=== PATIENT | female | born 1970 | race Caucasian/White ===

== ENCOUNTER 2025-08-10 07:07 | Observation (INO) | payer MEDICARE ==
[2025-08-10] MEDS ORDERED: solu-CORTEF 100MG IJ ONE (07:08)
[2025-08-10 07:51] LABS: Hematocrit 36.2 % (34.1-44.9); Hemoglobin 11.2 g/dL (11.2-15.7); Mean Corpuscular Hemoglobin 26.2 pg (25.6-32.2); Mean Corpuscular Hgb Concent. 30.9 g/dL (32.2-35.5); Platelet Count 455 x10^3/uL (182-369); Red Blood Count 4.27 x10^6/uL (3.93-5.22); White Blood Count 13.2 x10^3/uL (3.98-10.04)
[2025-08-10 07:52] LABS: Glucose, Urine Negative (Negative); Protein,Urine Dip Trace (Negative); RBC 0-2 /HPF (0-5); WBC 0-2 /HPF (0-5)
[2025-08-10 08:04] LABS: Calcium 9.5 mg/dL (8.4-10.2); Carbon Dioxide 24.0 mmol/L (22-30); Creatinine 1 0.85 mg/dL (0.52-1.04); EST GLOMERULAR FILTRATION RATE 80.4 ML/MIN; Glucose 92.0 mg/dL (74-106); Potassium 4.1 mmol/L (3.5-5.1); SGOT/AST 27.0 U/L (14-36); SGPT/ALT 16.0 U/L (0-35); Total Protein 9.2 g/dL (6.3-8.2)
[2025-08-10] MEDS ORDERED: CLINDAMYCIN-D5W 900 MG/50 ML*** 900 MG/50 ML BAG IV ONE (08:28)
[2025-08-10] MEDS ORDERED: Lactated Ringers 1,000 ML IV ONE (08:28)
[2025-08-10] MEDS: Lactated Ringers 1,000 ML IV SCH (08:30)
[2025-08-10] MEDS: CLINDAMYCIN-D5W 900 MG/50 ML*** 900 MG/50 ML BAG IV ONE (08:31)
[2025-08-10 08:36] LABS: Total Cells Counted 100
[2025-08-10 08:48] LABS: Polychromasia 1+
[2025-08-10] MEDS ORDERED: VANCOCIN INJECTION IV ONE ×2 (09:43)
[2025-08-10] MEDS ORDERED: ROCURONIUM BROMIDE IV ONE (10:16)
[2025-08-10] MEDS ORDERED: propofoL IV ONE (10:16)
[2025-08-10] MEDS ORDERED: Zofran 4 MG/2 ML VIAL ONE (10:16)
[2025-08-10] MEDS ORDERED: BRIDION 200MG/2ML IV ONE (12:26)
[2025-08-10] MEDS ORDERED: SUBLIMAZE 100 MCG/2 ML ONE ×2 (12:27→13:03)
--- NOTE | 2025-08-10 12:28 | XRAY ---
Indication: Right foot removal external fixator, possible debridement, and antibiotic spacer. Intraoperative fluoroscopy provided for 2 minute 27 seconds. 11 digital spot images submitted for interpretation demonstrates partial resection distal tibia and talar dome with placement of unknown radiopaque disc/spacer at surgical site. Correlate with intraoperative findings/report.
[2025-08-10] MEDS ORDERED: DILAUDID 0.5 MG/0.5 ML SYRINGE ONE (13:03)
--- NOTE | 2025-08-10 13:42 | PCM.CONS ---
Podiatry HPI - Consult Date of Consultation Date: 08/10/25 Reason for Consult: Charcot osteoarthropathy right ankle and midfoot, osteomyelitis Consulting Provider: CECE GOMEZ DPM - [facility] History of Present Illness: Vandana is a very pleasant 55-year-old female well-known to my service for failure of tibial talocalcaneal arthrodesis with another provider who presented to my service with an infection and failure of hardware approximately 5 weeks ago. Subsequently bone biopsies and bone cultures were obtained in the index procedure with incision and drainage with bone debridement and application of an external fixator demonstrating clean bone biopsies with confounding bone cultures at the level of the talus with scant growth of beta-hemolytic strep. These findings were sensitive to IV and oral antibiotics for which she has been on for the last month and a half. Patient presented for surgical intervention today however presented with mild leukocytosis thrombocytosis and elevated total protein consistent with chronic inflammatory and reactive processes. Once again bone cultures and biopsies were negative and there is no clinical evidence of active infection on exam given the absence of systemic and local signs of infection the discussion was held with the patient in regards to going forward with surgical intervention however workup with urinary analysis did not prompt a urine culture and we do need to identify source control. Discussion was held in regards to removal of external fixator as well as antibiotic spacer and getting repeat bone biopsies and bone cultures. It is out of an abundance of caution that we proceeded with the removal of the external fixator repeat bone biopsies partial colectomy and placement of antibiotic spacer she has since been on antibiotics however does have some serge cations of urinary frequency and dysuria which although urinalysis was negative she will be admitted for further evaluation and workup of resistant urinary tract infection. Given ongoing concern for potential occult infection we will obtain an MRI to better delineate if there is any residual osseous or soft tissue involvement. I would prefer a PICC line be placed to facilitate IV antibiotics if deemed necessary. At this time we have decided to defer definitive fixation and reschedule for next week if all cultures and biopsies have been deemed negative. Medications & Allergies Home Medications: Home Medication List Acetaminophen [Tylenol] 1 tab PO UD PRN 07/12/25 [History Confirmed 08/10/25] Diltiazem HCl Cd [Cardizem CD ] 180 mg PO DAILY 07/12/25 [History Confirmed 08/10/25] Duloxetine HCl 1 tab PO DAILY 07/12/25 [History Confirmed 08/10/25] Esomeprazole Magnesium 40 mg PO DAILY 07/12/25 [History Confirmed 08/10/25] Furosemide 40 mg [Lasix 40 MG] 1 tab PO DAILY 07/12/25 [History Confirmed 08/10/25] Gabapentin [Neurontin ] 1 cap PO HS 07/12/25 [History Confirmed 08/10/25] Levomefolate Calcium [l-Methylfolate] 1 tab PO DAILY 07/12/25 [History Confirmed 08/10/25] Levothyroxine Sodium 75 Mcg [Synthroid 75 Mcg] 1 tab PO DAILY 07/12/25 [History Confirmed 08/10/25] Meloxicam 15 mg [Meloxicam 15 MG] 1 tab PO DAILY 07/12/25 [History Confirmed 08/10/25] Potassium Chloride 1 tab PO DAILY 07/12/25 [History Confirmed 08/10/25] Terazosin HCl 1 tab PO DAILY 07/12/25 [History Confirmed 08/10/25] buPROPion HCL [Bupropion Xl] 1 tab PO DAILY 07/12/25 [History Confirmed 08/10/25] predniSONE [Prednisone] 1 tab PO .EVERY OTHER DAY 07/12/25 [History Confirmed 08/10/25] Aspirin EC 325 mg [Ecotrin 325 MG] 325 mg PO DAILY tablet 07/16/25 [Rx Confirmed 08/10/25] Ferrous Sulfate 325 mg [Feosol 325 mg] 325 mg PO DAILY 30 Days #30 tablet 07/16/25 [Rx Confirmed 08/10/25] Cholecalciferol (Vitamin D3) [Vitamin D3] 1 tab PO DAILY 08/06/25 [History Confirmed 08/10/25] Allergies/Adverse Reactions: Allergies Allergy/AdvReac Type Severity Reaction Status Date / Time cephalexin [From Keflex] Allergy Verified 08/10/25 07:53 lisinopril Allergy Verified 08/10/25 07:53 - Past Medical History Past Medical History: Yes Neurological History: Peripheral Neuropathy ENT History: Cataracts Cardiac History: Hypertension, Other Respiratory History: No Pertinent History Endocrine Medical History: Hypothyroidism Musculoskelatal History: Rheumatoid Arthritis GI Medical History: GERD History: No Pertinent History Pyscho-Social History: Anxiety, Depression Reproductive Disorders: No Pertinent History Comment: heart murmur. former smoker quit 3 years ago. peripheral venous insuffi. anemia - Past Surgical History Past Surgical History: Yes Neuro Surgical History: No Pertinent History Cardiac History: No Pertinent History Respiratory Surgery: No Pertinent History GI Surgical History: No Pertinent History Genitourinary Surgical Hx: No Pertinent History Musculskeletal Surgical Hx: Joint Replacement, Other Female Surgical History: Section Other Surgical History: Lower back fusion. multiple foot surgeries - Social History Smoking Status: Former smoker Exposure to second hand smoke: No Alcohol: None Drug Use: none Physical Exam - Narrative Narrative Physical Exam: Podiatry Physical Exam Results - Labs Lab/Micro Results: Lab Results-Last 24 Hours 08/10/25 08/10/25 08/10/25 Range/Units 07:46 07:50 07:50 WBC 13.2 H (3.98-10.04) x10^3/uL RBC 4.27 (3.93-5.22) x10^6/uL Hgb 11.2 (11.2-15.7) g/dL Hct 36.2 (34.1-44.9) % MCV 84.8 (79.4-94.8) fL MCH 26.2 (25.6-32.2) pg MCHC 30.9 L (32.2-35.5) g/dL RDW 19.1 H (11.7-14.4) % Plt Count 455 H (182-369) x10^3/uL MPV 8.3 L (9.4-12.3) fL Segmented Neutrophils 59 (34.0-71.1) % Lymphocytes (Manual) 31 (19.3-51.7) % Monocytes (Manual) 4 L (4.7-12.5) % Eosinophils (Manual) 3 (0.7-5.8) % Basophils (Manual) 2 H (0.1-1.2) % Atypical Lymphocytes 1 % Platelet Estimate INCREASED (NORMAL) RBC Morphology ABNORMAL Polychromasia 1+ Anisocytosis 1+ Sodium 140 (135-145) mmol/L Potassium 4.1 (3.5-5.1) mmol/L Chloride 103 (98-107) mmol/L Carbon Dioxide 24 (22-30) mmol/L Anion Gap 16.7 H (5-15) MEQ/L BUN 21 H (7-17) mg/dL Creatinine 0.85 (0.52-1.04) mg/dL Estimated GFR 80.4 ML/MIN Glucose 92 (74-106) mg/dL Calcium 9.5 (8.4-10.2) mg/dL Total Bilirubin 0.40 (0.2-1.3) mg/dL AST 27 (14-36) U/L ALT 16 (0-35) U/L Alkaline Phosphatase 111 (38-126) U/L Serum Total Protein 9.2 H (6.3-8.2) g/dL Albumin 4.7 (3.5-5.0) g/dL Urine Color Dark Yellow A (Yellow) Urine Appearance Clear (Clear) Urine pH 5.0 (4.6-8.0) Ur Specific [place] >=1.030 A (1.005-1.030) Urine Protein Trace A (Negative) Urine Glucose (UA) Negative (Negative) mg/dL Urine Ketones Trace A (Negative) Urine Blood Negative (Negative) Urine Nitrite Negative (Negative) Urine Bilirubin Negative (Negative) Urine Urobilinogen 1.0 A (0.2) mg/dL Ur Leukocyte Esterase Negative (Negative) U Hyaline Cast (Auto) 3-5 A (0-2) /LPF Urine Microscopic RBC 0-2 (0-5) /HPF Urine Microscopic WBC 0-2 (0-5) /HPF Ur Epithelial Cells Few (None Seen) /HPF Urine Bacteria Rare A (None Seen) /HPF Urine Culture Reflexed NO (NO) - Radiology Impressions Radiology Exams & Impressions: Radiology Procedures Category Date Time Status FLUOROSCOPY UP TO 1 HR Routine Exams 08/10/25 07:03 Taken FOOT (MINIMUM 3 VIEWS) Routine Exams 08/10/25 07:03 Completed Assessment/Plan (1) Charcot joint of foot Current Visit: No Status: Acute Assessment & Plan: Plan for today consisted of removal of external fixator repeat bone biopsies partial colectomy and placement of an antibiotic spacer postop day 0 at this time Patient will be admitted observation for evaluation and management including urine culture and further infectious workup given urinary symptoms We will obtain an MRI to better assess for occult osseous or soft tissue infections prior to definitive fixation Possible PICC line placement if urinary culture is negative for ongoing IV antibiotic therapy For possible occult osteomyelitis. Query infectious disease consult with Dr. Milner If no further positive Cultures Discovered Initiate empiric broad-spectrum antibiotics Nonweightbearing to the right lower extremity as indicated Pain prophylaxis as prescribed DVT prophylaxis as indicated Will follow with you Code(s): M14.679 - CHARCOT'S JOINT, UNSPECIFIED ANKLE AND FOOT (2) Charcot's joint, right ankle and foot Current Visit: No Status: Acute Code(s): M14.671 - CHARCOT'S JOINT, RIGHT ANKLE AND FOOT (3) History of removal of retained hardware Current Visit: No Status: Acute Code(s): Z98.890 - OTHER SPECIFIED POSTPROCEDURAL STATES (4) Hypoalbuminemia Current Visit: No Status: Acute Code(s): E88.09 - OTH DISORDERS OF PLASMA- PROTEIN METABOLISM, NEC (5) Leukocytosis Current Visit: No Status: Acute Code(s): D72.829 - ELEVATED WHITE BLOOD CELL COUNT, UNSPECIFIED (6) Ulcer of left foot Current Visit: No Status: Acute Code(s): L97.529 - NON-PRESSURE CHRONIC ULCER OTH PRT LEFT FOOT W UNSP SEVERITY (7) Obesity (BMI 30.0-34.9) Current Visit: No Status: Chronic Code(s): E66.811 - OBESITY, CLASS 1 (8) Peripheral neuropathy Current Visit: No Status: Chronic Code(s): G62.9 - POLYNEUROPATHY, UNSPECIFIED
--- NOTE | 2025-08-10 14:41 | PCM.HP ---
History of Present Illness - Chief Complaint Chief Complaint: charcotosteoarthroplasty Date: 08/10/25 History of Present Illness: is a 55 year old female with pmhx of peripheral neuropathy, hypertension, hypothyroidism, osteoarthritis, rheumatoid arthritis, GERD, anxiety, depression, heart murmur, degenerative disc disease, peripheral vascular disease, anemia, and chronic obesity. She was admitted following podiatric surgery for a right Charcot foot hardware removal. Podiatry also requesting an MRI of right ankle to eval for osteomyelitis. She also has complaints of dysuria and urgency with urination. AZO and Levaquin started. Levaquin started by podiatry today. Pt denies any further concerns at this time. - Review of Systems Constitutional: No Fever, No Chills Eyes: No Symptoms Ears, Nose, & Throat: No Symptoms Respiratory: No Cough, No Short Of Breath Cardiac: No Chest Pain, No Edema, No Syncope Abdominal/Gastrointestinal: No Abdominal Pain, No Nausea, No Vomiting, No Diarrhea Genitourinary Symptoms: Dysuria, Frequency Musculoskeletal: No Back Pain, No Neck Pain Skin: Other (RLE wrapped), No Rash Neurological: No Dizziness, No Focal Weakness, No Sensory Changes Psychological: No Symptoms Endocrine: No Symptoms Hematologic/Lymphatic: No Symptoms Immunological/Allergic: No Symptoms Medications & Allergies Home Medications: Home Medication List Acetaminophen [Tylenol] 1 tab PO UD PRN 07/12/25 [History Confirmed 08/10/25] Diltiazem HCl Cd [Cardizem CD ] 180 mg PO DAILY 07/12/25 [History Confirmed 08/10/25] Duloxetine HCl 1 tab PO DAILY 07/12/25 [History Confirmed 08/10/25] Esomeprazole Magnesium 40 mg PO DAILY 07/12/25 [History Confirmed 08/10/25] Furosemide 40 mg [Lasix 40 MG] 1 tab PO DAILY 07/12/25 [History Confirmed 08/10/25] Gabapentin [Neurontin ] 1 cap PO HS 07/12/25 [History Confirmed 08/10/25] Levomefolate Calcium [l-Methylfolate] 1 tab PO DAILY 07/12/25 [History Confirmed 08/10/25] Levothyroxine Sodium 75 Mcg [Synthroid 75 Mcg] 1 tab PO DAILY 07/12/25 [History Confirmed 08/10/25] Meloxicam 15 mg [Meloxicam 15 MG] 1 tab PO DAILY 07/12/25 [History Confirmed 08/10/25] Potassium Chloride 1 tab PO DAILY 07/12/25 [History Confirmed 08/10/25] Terazosin HCl 1 tab PO DAILY 07/12/25 [History Confirmed 08/10/25] buPROPion HCL [Bupropion Xl] 1 tab PO DAILY 07/12/25 [History Confirmed 08/10/25] predniSONE [Prednisone] 1 tab PO .EVERY OTHER DAY 07/12/25 [History Confirmed 08/10/25] Aspirin EC 325 mg [Ecotrin 325 MG] 325 mg PO DAILY tablet 07/16/25 [Rx Confirmed 08/10/25] Ferrous Sulfate 325 mg [Feosol 325 mg] 325 mg PO DAILY 30 Days #30 tablet 07/16/25 [Rx Confirmed 08/10/25] Cholecalciferol (Vitamin D3) [Vitamin D3] 1 tab PO DAILY 08/06/25 [History Confirmed 08/10/25] Allergies/Adverse Reactions: Allergies Allergy/AdvReac Type Severity Reaction Status Date / Time cephalexin [From Keflex] Allergy Verified 08/10/25 07:53 lisinopril Allergy Verified 08/10/25 07:53 - Past Medical History Past Medical History: Yes Neurological History: Peripheral Neuropathy ENT History: Cataracts Cardiac History: Hypertension, Other Respiratory History: No Pertinent History Endocrine Medical History: Hypothyroidism Musculoskelatal History: Rheumatoid Arthritis GI Medical History: GERD History: No Pertinent History Pyscho-Social History: Anxiety, Depression Reproductive Disorders: No Pertinent History Comment: heart murmur. former smoker quit 3 years ago. peripheral venous insuffi. anemia - Past Surgical History Past Surgical History: Yes Neuro Surgical History: No Pertinent History Cardiac History: No Pertinent History Respiratory Surgery: No Pertinent History GI Surgical History: No Pertinent History Genitourinary Surgical Hx: No Pertinent History Musculskeletal Surgical Hx: Joint Replacement, Other Female Surgical History: Section Other Surgical History: Lower back fusion. multiple foot surgeries - Social History Smoking Status: Former smoker Exposure to second hand smoke: No Alcohol: None Drug Use: none - Physical Exam Vital Signs: Vital Signs - 24 hr Temp Pulse Resp BP Pulse Ox 08/10/25 08:21 98.5 F 78 16 162/92 100 08/10/25 08:11 98.5 F 78 16 162/92 100 General Appearance: no apparent distress, alert Neurologic Exam: alert, oriented x 3, cooperative, normal mood/affect, nml cerebellar function, nml station & gait, sensation nml, No motor deficits Eye Exam: PERRL/EOMI, eyes nml inspection Ears, Nose, Throat Exam: normal ENT inspection, TMs normal, pharynx normal, moist mucous membranes Neck Exam: normal inspection, non-tender, supple, full range of motion Respiratory Exam: normal breath sounds, lungs clear, No respiratory distress Cardiovascular Exam: regular rate/rhythm, normal heart sounds, normal peripheral pulses Gastrointestinal/Abdomen Exam: soft, normal bowel sounds, No tenderness, No mass Back Exam: normal inspection, normal range of motion, No CVA tenderness, No vertebral tenderness Extremity Exam: normal inspection, normal range of motion, pelvis stable, tenderness (RLE wrapped) Skin Exam: normal color, warm, dry, No rash Lymphatic Exam: No adenopathy Results - Labs Lab/Micro Results: Lab Results-Last 24 Hours 08/10/25 08/10/25 08/10/25 Range/Units 07:46 07:50 07:50 WBC 13.2 H (3.98-10.04) x10^3/uL RBC 4.27 (3.93-5.22) x10^6/uL Hgb 11.2 (11.2-15.7) g/dL Hct 36.2 (34.1-44.9) % MCV 84.8 (79.4-94.8) fL MCH 26.2 (25.6-32.2) pg MCHC 30.9 L (32.2-35.5) g/dL RDW 19.1 H (11.7-14.4) % Plt Count 455 H (182-369) x10^3/uL MPV 8.3 L (9.4-12.3) fL Segmented Neutrophils 59 (34.0-71.1) % Lymphocytes (Manual) 31 (19.3-51.7) % Monocytes (Manual) 4 L (4.7-12.5) % Eosinophils (Manual) 3 (0.7-5.8) % Basophils (Manual) 2 H (0.1-1.2) % Atypical Lymphocytes 1 % Platelet Estimate INCREASED (NORMAL) RBC Morphology ABNORMAL Polychromasia 1+ Anisocytosis 1+ Sodium 140 (135-145) mmol/L Potassium 4.1 (3.5-5.1) mmol/L Chloride 103 (98-107) mmol/L Carbon Dioxide 24 (22-30) mmol/L Anion Gap 16.7 H (5-15) MEQ/L BUN 21 H (7-17) mg/dL Creatinine 0.85 (0.52-1.04) mg/dL Estimated GFR 80.4 ML/MIN Glucose 92 (74-106) mg/dL Calcium 9.5 (8.4-10.2) mg/dL Total Bilirubin 0.40 (0.2-1.3) mg/dL AST 27 (14-36) U/L ALT 16 (0-35) U/L Alkaline Phosphatase 111 (38-126) U/L Serum Total Protein 9.2 H (6.3-8.2) g/dL Albumin 4.7 (3.5-5.0) g/dL Urine Color Dark Yellow A (Yellow) Urine Appearance Clear (Clear) Urine pH 5.0 (4.6-8.0) Ur Specific [place] >=1.030 A (1.005-1.030) Urine Protein Trace A (Negative) Urine Glucose (UA) Negative (Negative) mg/dL Urine Ketones Trace A (Negative) Urine Blood Negative (Negative) Urine Nitrite Negative (Negative) Urine Bilirubin Negative (Negative) Urine Urobilinogen 1.0 A (0.2) mg/dL Ur Leukocyte Esterase Negative (Negative) U Hyaline Cast (Auto) 3-5 A (0-2) /LPF Urine Microscopic RBC 0-2 (0-5) /HPF Urine Microscopic WBC 0-2 (0-5) /HPF Ur Epithelial Cells Few (None Seen) /HPF Urine Bacteria Rare A (None Seen) /HPF Urine Culture Reflexed NO (NO) - Radiology Impressions Radiology Exams & Impressions: Radiology Procedures Category Date Time Status FLUOROSCOPY UP TO 1 HR Routine Exams 08/10/25 07:03 Taken FOOT (MINIMUM 3 VIEWS) Routine Exams 08/10/25 07:03 Completed Assessment/Plan (1) S/P hardware removal Current Visit: Yes Status: Acute Assessment & Plan: - In OR by podiatry today - Podiatry note reviewed - MRI of RLE pending - Narcotic pain med PO PRN - CBC, CMP reviewed - Cultures pending from OR procedure Code(s): Z98.890 - OTHER SPECIFIED POSTPROCEDURAL STATES (2) UTI (urinary tract infection) Current Visit: Yes Status: Acute Assessment & Plan: - UA reviewed - + Dysuria and urgency - UC pending - AZO - Levaquin Code(s): N39.0 - URINARY TRACT INFECTION, SITE NOT SPECIFIED (3) Charcot joint of foot Current Visit: No Status: Chronic Assessment & Plan: - Chronic - Podiatry following Code(s): M14.679 - CHARCOT'S JOINT, UNSPECIFIED ANKLE AND FOOT (4) Leukocytosis Current Visit: No Status: Acute Assessment & Plan: - WBC 13.2 - UTI vs RLE infection? Code(s): D72.829 - ELEVATED WHITE BLOOD CELL COUNT, UNSPECIFIED (5) Depression with anxiety Current Visit: No Status: Chronic Assessment & Plan: - Continue home meds Code(s): F41.8 - OTHER SPECIFIED ANXIETY DISORDERS (6) HTN (hypertension) Current Visit: No Status: Chronic Assessment & Plan: - Hydralizne PRN IV Code(s): I10 - ESSENTIAL (PRIMARY) HYPERTENSION (7) Obesity (BMI 30.0-34.9) Current Visit: No Status: Chronic Code(s): E66.811 - OBESITY, CLASS 1 (8) Peripheral neuropathy Current Visit: No Status: Chronic Assessment & Plan: - Continue Cymbalta and gabapentin VTE: SCD to LLE PPI: Protonix Next of KIN: S/O D/C plan: pending podiatry recs Code status: Full Plan of care time: > 45 minutes Code(s): G62.9 - POLYNEUROPATHY, UNSPECIFIED Telemedicine Encounter - Telemedicine Encounter Telemedicine Encounter: "The entirety of this encounter was performed via Telemedicine" This visit was performed using real-time audio and video connection between my location and thepatients locationwith the assistance of a surrogateat the patients location. Written or verbal consent was obtained from the patient/guardian to perform this visit [facility] technology. Any patient questions regarding the telemedicine interaction were answered.
--- NOTE | 2025-08-10 14:48 | XRAY ---
Two minutes and 27 seconds of fluoroscopy was used in surgery for a right foot removal external fixator, possible debridement, and antibiotic spacer.
[2025-08-10] MEDS: Cardizem CD PO SCH (15:06)
[2025-08-10] MEDS: Klor Con PO SCH (15:06)
[2025-08-10] MEDS: Protonix 40MG Tablet PO SCH (15:06)
[2025-08-10] MEDS: Lasix 40 MG PO SCH (15:06)
[2025-08-10] MEDS: HYTRIN 1 MG PO SCH (15:07)
[2025-08-10] MEDS: Ecotrin 325 MG PO SCH (15:07)
[2025-08-10] MEDS: SYNTHROID 75 MCG PO SCH (15:07)
[2025-08-10] MEDS: Levofloxacin 250MG Tablet PO SCH (15:07)
[2025-08-10] MEDS: FEOSOL 325 MG PO SCH (15:08)
[2025-08-10] MEDS: Cymbalta 30 MG Capsule PO SCH (15:08)
[2025-08-10] MEDS: MELOXICAM PO SCH (15:08)
[2025-08-10] MEDS ORDERED: APRESOLINE 20 MG/ML INJ IV PRN (15:09)
[2025-08-10] MEDS: Wellbutrin XL 150 MG PO SCH (15:11)
[2025-08-10] MEDS: FOLTX (FOLBIC) PO SCH (15:11)
[2025-08-10] MEDS: PYRIDIUM 200 MG PO SCH (15:20)
[2025-08-10] MEDS: NEURONTIN PO SCH (21:01)
[2025-08-10] MEDS: Oxy-IR 5 MG PO PRN (21:01)
[2025-08-11 07:50] LABS: Hematocrit 28.5 % (34.1-44.9); Mean Corpuscular Hemoglobin 26.7 pg (25.6-32.2); Mean Corpuscular Hgb Concent. 30.9 g/dL (32.2-35.5); Platelet Count 300 x10^3/uL (182-369); Red Blood Count 3.29 x10^6/uL (3.93-5.22); White Blood Count 8.7 x10^3/uL (3.98-10.04)
[2025-08-11 07:56] LABS: Calcium 8.3 mg/dL (8.4-10.2); Carbon Dioxide 26.0 mmol/L (22-30); Creatinine 1 0.58 mg/dL (0.52-1.04); EST GLOMERULAR FILTRATION RATE 106.1 ML/MIN; Glucose 107.0 mg/dL (74-106); Hemoglobin 8.8 g/dL (11.2-15.7); Potassium 3.7 mmol/L (3.5-5.1); SGOT/AST 22.0 U/L (14-36); SGPT/ALT 11.0 U/L (0-35); Total Protein 6.5 g/dL (6.3-8.2)
[2025-08-11] MEDS: DELTASONE 5 MG PO SCH (09:08)
--- NOTE | 2025-08-11 09:10 | PCM.NOTE ---
Date and Time: 08/11/25903 Subjective Assessment: 08/10/25 is a 55 year old female with pmhx of peripheral neuropathy, hypertension, hypothyroidism, osteoarthritis, rheumatoid arthritis, GERD, anxiety, depression, heart murmur, degenerative disc disease, peripheral vascular disease, anemia, and chronic obesity. She was admitted following podiatric surgery for a right Charcot foot hardware removal. Podiatry also requesting an MRI of right ankle to eval for osteomyelitis. She also has complaints of dysuria and urgency with urination. AZO and Levaquin started. Levaquin started by podiatry today. Pt denies any further concerns at this time. 08/11/25 Pt resting in bed. No overnight complaints and pain well controlled. She is POD #2 from hardware removal with podiatry. MRI pending of RLE. WBC normalized. Hgb 8.8- will trend. UC and bone cultures x2 pending. Continue levaquin PO per podiatry. She denies any further concerns at this time. - Review of Systems Constitutional: No Fever, No Chills Eyes: No Symptoms Ears, Nose, & Throat: No Symptoms Respiratory: No Cough, No Short Of Breath Cardiac: No Chest Pain, No Edema, No Syncope Abdominal/Gastrointestinal: No Abdominal Pain, No Nausea, No Vomiting, No Diarrhea Genitourinary Symptoms: No Dysuria Musculoskeletal: No Back Pain, No Neck Pain Skin: Skin Lesions (BLLE wrapped), No Rash Neurological: No Dizziness, No Focal Weakness, No Sensory Changes Psychological: No Symptoms Endocrine: No Symptoms Hematologic/Lymphatic: No Symptoms Immunological/Allergic: No Symptoms Objective Exam General Appearance: no apparent distress, alert Neurologic Exam: alert, oriented x 3, cooperative, normal mood/affect, nml cerebellar function, sensation nml, No motor deficits Skin Exam: normal color, warm, dry Eye Exam: PERRL, EOMI, eyes nml inspection Ears, Nose, Throat Exam: normal ENT inspection, pharynx normal, moist mucous membranes Neck Exam: normal inspection, non-tender, supple, full range of motion Respiratory Exam: normal breath sounds, lungs clear, No respiratory distress Cardiovascular Exam: regular rate/rhythm, normal heart sounds Gastrointestinal/Abdomen Exam: soft, No tenderness, No mass Extremity Exam: normal inspection, normal range of motion, limited range of motion (BLLE wrapped), tenderness Back Exam: normal inspection, normal range of motion, No CVA tenderness, No vertebral tenderness Pelvic Exam: deferred Rectal Exam: deferred Objective Data Vital Signs: Vital Signs - 24 hr Temp Pulse Resp BP Pulse Ox 08/11/25 07:56 97.9 F 65 20 116/56 96 08/11/25 04:28 97.2 F 62 16 113/57 97 08/11/25 00:00 97.6 F 52 L 16 107/57 95 08/10/25 20:00 97.8 F 67 16 149/72 98 08/10/25 16:00 97.9 F 85 22 130/58 98 Pain Assessment - Last Documented Pain Intensity 3 Pain Scale Used 0-10 Pain Scale Intake and Output: Intake & Output 08/08/25 08/09/25 08/10/25 08/11/25 11:59 11:59 11:59 11:59 Intake Total 480 Balance 480 Weight 101.5 kg 101.5 kg Lab Results: Lab Results-Last 24 Hours 08/11/25 08/11/25 Range/Units 07:38 07:38 WBC 8.7 (3.98-10.04) x10^3/uL RBC 3.29 L (3.93-5.22) x10^6/uL Hgb 8.8 L D (11.2-15.7) g/dL Hct 28.5 L (34.1-44.9) % MCV 86.6 (79.4-94.8) fL MCH 26.7 (25.6-32.2) pg MCHC 30.9 L (32.2-35.5) g/dL RDW 19.1 H (11.7-14.4) % Plt Count 300 D (182-369) x10^3/uL MPV 8.5 L (9.4-12.3) fL Sodium 139 (135-145) mmol/L Potassium 3.7 (3.5-5.1) mmol/L Chloride 108 H (98-107) mmol/L Carbon Dioxide 26 (22-30) mmol/L Anion Gap 8.6 (5-15) MEQ/L BUN 15 (7-17) mg/dL Creatinine 0.58 (0.52-1.04) mg/dL Estimated GFR 106.1 ML/MIN Glucose 107 H (74-106) mg/dL Calcium 8.3 L (8.4-10.2) mg/dL Total Bilirubin 0.20 (0.2-1.3) mg/dL AST 22 (14-36) U/L ALT 11 (0-35) U/L Alkaline Phosphatase 83 (38-126) U/L Serum Total Protein 6.5 (6.3-8.2) g/dL Albumin 3.4 L (3.5-5.0) g/dL Radiology Exams: Radiology Procedures Category Date Time Status FLUOROSCOPY UP TO 1 HR Routine Exams 08/10/25 07:03 Completed FOOT (MINIMUM 3 VIEWS) Routine Exams 08/10/25 07:03 Completed MRI LOW EXT JOINT W/O CONTRAST [MRI] Routine Exams 08/11/25 08:00 Ordered Medications: Medications Generic Name Dose Route Start Last Admin Trade Name Freq PRN Reason Stop Dose Admin Acetaminophen 325 mg 08/10/25 14:19 Acetaminophen 325 Mg Tablet PO 09/09/25 14:18 UD PRN PAIN AND/OR FEVER Aspirin 325 mg 08/10/25 15:00 08/10/25 15:07 Aspirin 325 Mg Tablet.Ec PO 09/09/25 14:59 325 mg DAILY KARENA Administration Bupropion HCl 300 mg 08/10/25 15:00 08/10/25 15:11 Bupropion Hcl 150 Mg Tablet Xl PO 09/09/25 14:59 300 mg DAILY KARENA Administration Diltiazem HCl 180 mg 08/10/25 15:00 08/10/25 15:06 Diltiazem Hcl Cd 180 Mg Cap.Sr.24h PO 09/09/25 14:59 180 mg DAILY KARENA Administration Duloxetine HCl 30 mg 08/10/25 15:00 08/10/25 15:08 Duloxetine Hcl 30 Mg Cap PO 09/09/25 14:59 30 mg DAILY KARENA Administration Ergocalciferol 50,000 unit 08/11/25 10:00 Ergocalciferol (Vitamin D2) 50,000 Unit Capsule PO 09/10/25 09:59 UD KARENA Ferrous Sulfate 325 mg 08/10/25 15:00 08/10/25 15:08 Ferrous Sulfate 325 Mg Tablet PO 09/09/25 14:59 325 mg DAILY KARENA Administration Folic Acid 1 tab 08/10/25 15:00 08/10/25 15:11 Folic Acid/Vitamin B Comp W-C 1 Tab Tab PO 09/09/25 14:59 1 tab DAILY KARENA Administration Furosemide 40 mg 08/10/25 15:00 08/10/25 15:06 Furosemide 40 Mg Tablet PO 09/09/25 14:59 40 mg DAILY KARENA Administration Gabapentin 300 mg 08/10/25 22:00 08/10/25 21:01 Gabapentin 300 Mg Capsule PO 09/09/25 21:59 300 mg HS KARENA Administration Hydralazine HCl 10 mg 08/10/25 15:09 Hydralazine Hcl 20 Mg/Ml Vial IV 09/09/25 15:08 Q4H PRN PRN HYPERTENSION Levofloxacin 750 mg 08/10/25 15:00 08/10/25 15:07 Levofloxacin 250 Mg Tab PO 08/19/25 10:01 750 mg DAILY KARENA Administration Levothyroxine Sodium 75 mcg 08/10/25 15:00 08/10/25 15:07 Levothyroxine Sodium 75 Mcg Tablet PO 09/09/25 14:59 75 mcg DAILY KARENA Administration Meloxicam 15 mg 08/10/25 15:00 08/10/25 15:08 Meloxicam 7.5 Mg Tablet PO 09/09/25 14:59 15 mg DAILY KARENA Administration Oxycodone HCl 10 mg 08/10/25 14:18 08/10/25 21:01 Oxycodone Hcl 5 Mg Ir Tab PO 08/15/25 14:17 10 mg Q6H PRN PRN Administration POST OP PAIN Pantoprazole Sodium 40 mg 08/10/25 15:00 08/10/25 15:06 Protonix (Pantoprazole) 40 Mg Tablet PO 09/09/25 14:59 40 mg DAILY KARENA Administration Phenazopyridine HCl 200 mg 08/10/25 15:00 08/10/25 21:01 Phenazopyridine Hcl 200 Mg Tablet PO 08/12/25 14:59 200 mg TID KARENA Administration Potassium Chloride 20 meq 08/10/25 15:00 08/10/25 15:06 Potassium Chloride Tab 10 Meq Tab PO 09/09/25 14:59 20 meq DAILY KARENA Administration Prednisone 1.25 mg 08/11/25 10:00 Prednisone 5 Mg Tablet PO 09/10/25 09:59 QOD KARENA Terazosin HCl 5 mg 08/10/25 15:00 08/10/25 15:07 Terazosin Hcl 1 Mg Cap PO 09/09/25 14:59 5 mg DAILY KARENA Administration Discontinued Medications Generic Name Dose Route Start Last Admin Trade Name Garrett PRCorazon Reason Stop Dose Admin Fentanyl Citrate Confirm 08/10/25 12:27 Fentanyl Citrate 100 Mcg/2 Ml* Vial Administered 08/10/25 12:28 Dose 100 mcg .ROUTE .STK-MED ONE Fentanyl Citrate Confirm 08/10/25 13:03 Fentanyl Citrate 100 Mcg/2 Ml* Vial Administered 08/10/25 13:04 Dose 100 mcg .ROUTE .STK-MED ONE Hydrocortisone Sodium Succinate 100 mg 08/10/25 07:08 Hydrocortisone Sod Succinate 100 Mg/Vial Vial IJ 08/10/25 07:09 .STK-MED ONE Hydromorphone HCl Confirm 08/10/25 13:03 Hydromorphone Hcl/Pf 0.5 Mg/0.5 Ml Syringe Administered 08/10/25 13:04 Dose 0.5 mg .ROUTE .STK-MED ONE Clindamycin HCl/Dextrose 900 mg in 50 mls @ 100 mls/hr 08/10/25 07:24 08/10/25 08:31 Clindamycin-D5w 900 Mg/50 Ml IV 08/10/25 07:53 100 mls/hr ONCALLTOOR ONE Administration Lactated Ringer's 1,000 mls @ 50 mls/hr 08/10/25 07:30 08/10/25 08:30 Lactated Ringers IV 09/09/25 07:29 50 mls/hr .Q20H KARENA Administration Clindamycin HCl/Dextrose Confirm 08/10/25 08:28 Clindamycin-D5w 900 Mg/50 Ml Administered 08/10/25 08:29 Dose 900 mg in 50 mls @ ud IV .STK-MED ONE Lactated Ringer's Confirm 08/10/25 08:28 Lactated Ringers Administered 08/10/25 08:29 Dose 1,000 mls @ ud IV .STK-MED ONE Ondansetron HCl Confirm 08/10/25 10:16 Ondansetron Hcl 4 Mg/2 Ml Vial Administered 08/10/25 10:17 Dose 4 mg .ROUTE .STK-MED ONE Propofol Confirm 08/10/25 10:16 Propofol 200 Mg/20 Ml Vial Administered 08/10/25 10:17 Dose 200 mg IV .STK-MED ONE Rocuronium [place] Confirm 08/10/25 10:16 Rocuronium [place] 50 Mg/5 Ml Vial Administered 08/10/25 10:17 Dose 50 mg IV .STK-MED ONE Sugammadex Sodium Confirm 08/10/25 12:26 Sugammadex Sodium 200 Mg/2 Ml Vial Administered 08/10/25 12:27 Dose 200 mg IV .STK-MED ONE Vancomycin HCl Confirm 08/10/25 09:43 Vancomycin Hcl Inj 1 Gm Vial Administered 08/10/25 09:44 Dose 1 gm IV .STK-MED ONE Vancomycin HCl Confirm 08/10/25 09:43 Vancomycin Hcl Inj 1 Gm Vial Administered 08/10/25 09:44 Dose 1 gm IV .STK-MED ONE Assessment/Plan (1) S/P hardware removal Current Visit: Yes Status: Acute Code(s): Z98.890 - OTHER SPECIFIED POSTPROCEDURAL STATES (2) UTI (urinary tract infection) Current Visit: Yes Status: Acute Code(s): N39.0 - URINARY TRACT INFECTION, SITE NOT SPECIFIED (3) Charcot joint of foot Current Visit: No Status: Chronic Code(s): M14.679 - CHARCOT'S JOINT, UNSPECIFIED ANKLE AND FOOT (4) Leukocytosis Current Visit: No Status: Acute Code(s): D72.829 - ELEVATED WHITE BLOOD CELL COUNT, UNSPECIFIED (5) Depression with anxiety Current Visit: No Status: Chronic Code(s): F41.8 - OTHER SPECIFIED ANXIETY DISORDERS (6) HTN (hypertension) Current Visit: No Status: Chronic Code(s): I10 - ESSENTIAL (PRIMARY) HYPERTENSION (7) Obesity (BMI 30.0-34.9) Current Visit: No Status: Chronic Code(s): E66.811 - OBESITY, CLASS 1 (8) Peripheral neuropathy Current Visit: No Status: Chronic Assessment & Plan: (1) S/P hardware removal Current Visit: Yes Status: Acute Assessment & Plan: - In OR by podiatry today - Podiatry note reviewed- consider PICC if needed - MRI of RLE pending - Narcotic pain med PO PRN - CBC, CMP reviewed - Cultures pending from OR procedure - Levaquin PO per podiatry 9/24 - POD #2 from hardware removal - MRI pending - pain well controlled - CBC, CMP reviewed - Bone Cultures pending x2 Code(s): Z98.890 - OTHER SPECIFIED POSTPROCEDURAL STATES (2) UTI (urinary tract infection) Current Visit: Yes Status: Acute Assessment & Plan: - UA reviewed - + Dysuria and urgency - UC pending - AZO - Levaquin 08/11 - UC pending - Sxs improved - Cont Levaquin Code(s): N39.0 - URINARY TRACT INFECTION, SITE NOT SPECIFIED (3) Charcot joint of foot Current Visit: No Status: Chronic Assessment & Plan: - Chronic - Podiatry following Code(s): M14.679 - CHARCOT'S JOINT, UNSPECIFIED ANKLE AND FOOT (4) Leukocytosis Current Visit: No Status: Acute Assessment & Plan: - WBC 13.2 - UTI vs RLE infection? 08/11 - Resolved Code(s): D72.829 - ELEVATED WHITE BLOOD CELL COUNT, UNSPECIFIED (5) Depression with anxiety Current Visit: No Status: Chronic Assessment & Plan: - Continue home meds Code(s): F41.8 - OTHER SPECIFIED ANXIETY DISORDERS (6) HTN (hypertension) Current Visit: No Status: Chronic Assessment & Plan: - Hydralizne PRN IV Code(s): I10 - ESSENTIAL (PRIMARY) HYPERTENSION (7) Obesity (BMI 30.0-34.9) Current Visit: No Status: Chronic Code(s): E66.811 - OBESITY, CLASS 1 - Advised diet and exercise control (8) Peripheral neuropathy Current Visit: No Status: Chronic Assessment & Plan: - Continue Cymbalta and gabapentin VTE: SCD to LLE PPI: Protonix Next of KIN: S/O D/C plan: pending podiatry recs Code status: Full Plan of care time: > 35 minutes Code(s): G62.9 - POLYNEUROPATHY, UNSPECIFIED
--- NOTE | 2025-08-11 09:38 | OP ---
SURGERY DATE/TIME: 08/10/2025 [id number] PREOPERATIVE DIAGNOSES: 1) Charcot osteoarthropathy right ankle. 2) Charcot osteoarthropathy of right midfoot. 3) Subacute osteomyelitis. 4) Failure of previous surgical intervention. 5) Retained external fixation. 6) Difficulty with ambulation. 7) Peripheral neuropathy. POSTOPERATIVE DIAGNOSES: 1) Charcot osteoarthropathy right ankle. 2) Charcot osteoarthropathy of right midfoot. 3) Subacute osteomyelitis. 4) Failure of previous surgical intervention. 5) Retained external fixation. 6) Difficulty with ambulation. 7) Peripheral neuropathy. PROCEDURE: 1) Removal of external fixator right ankle. 2) Removal of antibiotic spacer. 3) Incision and drainage with bone debridement right tibia. 4) Partial talectomy. 5) Application of an antibiotic-impregnated cement spacer right ankle. SURGEON: Liu Orozco DPM [employer]: ELMA Sandoval ANESTHESIA: General. HEMOSTASIS: Tourniquet set to 300 mmHg for a total of 65 total tourniquet minutes. ESTIMATED BLOOD LOSS: Approximately 25 mL. MATERIALS: 2-0 Prolene, 2-0 nylon. An antibiotic cement spacer with 2 g of vancomycin. INJECTABLES: None. INDICATIONS FOR PROCEDURE: Patient is a very pleasant 55-year-old female, who presented to my service after a tibiotalocalcaneal arthrodesis to the right ankle for Charcot of the right ankle as well as the midfoot with the flipper foot technique. From that standpoint, patient presented to my service with clinical indications of infection to the right ankle and lateral foot with also failure of hardware with subluxation through the plantar aspect of her foot. Patient was very quickly brought to the OR where incision and drainage was performed, bone biopsies were obtained, hardware was removed, and patient was temporized in an external fixator. We did get bone biopsies and bone cultures which were seemingly negative at that time. However, today, she does present with elevated white blood cell count, thrombocytosis, mild anemia, high total protein which is concerning for chronic inflammatory or infectious process; however, she also presents with a inconsistent medical picture. She does complain of urinary frequency and dysuria. A urinalysis was obtained which showed no pyuria or nitrates and no consistent findings with a UTI. From that standpoint, this makes me concerned that there is a source of infection that we have not identified. This discussion was held with the patient in regards to proceeding versus deferring surgical intervention. If there was some indication of continued infection to the right ankle then removal of the hardware, a bone debridement, and repeat bone biopsies would be the best way to proceed as well as removal of the external fixator would allow us to go forward with obtaining the MRI. Out of abundance of caution, after agreeing with the patient, we will proceed today with the removal of the external fixator, repeat bone biopsies, partial talectomy, and placement of an antibiotic spacer. Due to the urinary frequency and dysuria, although the urinalysis was negative, I discussed the case with the nurse practitioner and attending on the floor who agree she meets admission criteria, at least for observation, for further evaluation and workup despite her being on IV antibiotics for the last several weeks. It is noted that this is the second stage to a procedure which was intended to be definitive, however, at this time, definitive fixation will be deferred until next week contingent upon negative bone biopsies and cultures. The staged approach mitigates the risk of an occult infection and a septic union as well as optimizes conditions for reconstruction. From that standpoint, patient has been made aware of all risks, complications, and benefits of surgical intervention including, but not limited to, infection, hematoma, seroma, possibility of delayed wound healing, non-wound healing, possible need for further surgical intervention, which once again, this is a staged procedure, as well as possible loss of limb, and possible loss of life. Patient has been made aware of all of these risks. Plenty of time was allowed for her to ask questions to her apparent satisfaction. It is at this time we decided to proceed. DESCRIPTION OF PROCEDURE AND FINDINGS: Patient was brought into the operating room, placed on the operating room table in the supine position. At this time, under aseptic technique, the external fixator was removed. The pins were cleansed with iodine and then removed from her leg. The intramedullary rodolfo with the antibiotic-impregnated cement was then removed from the plantar aspect of her foot. Following this, the right lower extremity was prepped and draped in typical sterile fashion and lowered on the surgical field. At this time, under direct visualization of fluoroscopy, 10 blade was utilized to make an incision down to the level of bone with no layered dissection. This was carried down through a very thick area of scar tissue to the lateral aspect of her right ankle. Once the tibiotalar joint was identified, rongeurs were utilized to remove scar tissue and debride the joint surface. At this time, a 31 mm sagittal saw was then utilized to resect the tibial surface, handing this off for pathological and microbiological assessment, and then a similar process was carried out utilizing a 31 mm blade, cutting out a significant portion of the talus, leaving approximately 1 cm of the talus remaining. This flat track was utilized to obtain the bone biopsies as well as give us a flat surface for when definitive fixation was performed that would provide as preparation for this stage. From that standpoint, 1000 mL of Bactisure was utilized to flush the surgical site. Further debridement was performed utilizing rongeurs, curettes, and osteotomes. Once this was performed, 3000 mL of sterile saline were then utilized to flush the site. A 2 g vancomycin impregnated antibiotic cement spacer was then introduced into the deficit. Several retention sutures were placed over the incision and then a dressing consisting of Betadine, Adaptic, 4 x 4, Kerlix, ABD, and a well-padded posterior splint was applied to the patient's right leg with the foot orthogonal relative to longitudinal axis of the leg. Patient was then reversed from anesthesia and returned to the postoperative anesthesia care unit with vital signs stable and vascular status intact. Patient handled the anesthesia as well as the procedure without significant complication. Postoperative orders as indicated in the patient's discharge chart.
[2025-08-11] MEDS ORDERED: Ecotrin 325 MG PO SCH (10:00)
[2025-08-11] MEDS ORDERED: VITAMIN D2 PO SCH (10:00)
--- NOTE | 2025-08-11 12:41 | XRAY ---
Indication: Osteomyelitis. Status post right ankle surgery. Sagittal, coronal, and axial MRI right ankle performed without contrast using T1, T2, and STIR sequences. Comparison: None Ferromagnetic artifact from distal tibia orthopedic rodolfo and talotibial prosthesis. Smaller ferromagnetic artifact seen in soft tissues medial ankle also presumed iatrogenic. Tunnel radiolucencies through distal tibia/talus/calcaneus and posterior calcaneus from previous hardware. Tarsometatarsal articulation demonstrates marked deformities presumed related to previous reported Charcot arthropathy. Tarsal bones and mid to hindfoot demonstrates marked bony erosions/deformities with T2 bone edema signal and diffuse soft tissue swelling/edema. Findings may be related to recent surgery 1 day earlier. Inflammatory/infectious process not completely excluded in right clinical setting. No focal solid/cystic soft tissue mass or abnormal fluid collection. Major medial and lateral ankle ligaments not well visualized. Major medial/lateral ankle tendons and Achilles tendon intact without abnormal signal. Only proximal plantar aponeurosis is visualized and appears unremarkable. Impression: 1. Ferromagnetic artifact distal tibial orthopedic rodolfo, talotibial prosthesis, and medial ankle. 2. Diffuse mid to hindfoot bony erosions/deformities with diffuse soft tissue swelling/edema possibly related to surgery 1 day earlier. Cannot completely exclude inflammatory/infectious process. 3. Tarsometatarsal articulation deformities presumed related to previous reported Charcot arthropathy.
[2025-08-11] MEDS: TYLENOL 325 MG PO PRN (14:25)
--- NOTE | 2025-08-11 16:46 | PCM.NOTE ---
Date and Time: 08/11/25 1643 Subjective Assessment: Postop day #1 status post removal of external fixator repeat bone debridement to left ankle partial talectomy and application of antibiotic impregnated spacer to right ankle. Patient admitted for elevated leukocytosis and better assessment of urinary frequencyAnd dysuria.Patient technically failed outpatient therapy with Levaquin over the course of the last 3 weeks. We are awaiting cultures. Physical Exam - Narrative Narrative Physical Exam: Podiatry Physical Exam Objective Data Vital Signs: Vital Signs - 24 hr Temp Pulse Resp BP Pulse Ox 08/11/25 12:00 97.9 F 61 20 122/58 95 08/11/25 07:56 97.9 F 65 20 116/56 96 08/11/25 04:28 97.2 F 62 16 113/57 97 08/11/25 00:00 97.6 F 52 L 16 107/57 95 08/10/25 20:00 97.8 F 67 16 149/72 98 Pain Assessment - Last Documented Pain Intensity 4 Pain Scale Used 0-10 Pain Scale Intake and Output: Intake & Output 08/09/25 08/10/25 08/11/25 08/12/25 11:59 11:59 11:59 11:59 Intake Total 720 360 Balance 720 360 Weight 101.5 kg 101.5 kg Lab Results: Lab Results-Last 24 Hours 08/11/25 08/11/25 Range/Units 07:38 07:38 WBC 8.7 (3.98-10.04) x10^3/uL RBC 3.29 L (3.93-5.22) x10^6/uL Hgb 8.8 L D (11.2-15.7) g/dL Hct 28.5 L (34.1-44.9) % MCV 86.6 (79.4-94.8) fL MCH 26.7 (25.6-32.2) pg MCHC 30.9 L (32.2-35.5) g/dL RDW 19.1 H (11.7-14.4) % Plt Count 300 D (182-369) x10^3/uL MPV 8.5 L (9.4-12.3) fL Sodium 139 (135-145) mmol/L Potassium 3.7 (3.5-5.1) mmol/L Chloride 108 H (98-107) mmol/L Carbon Dioxide 26 (22-30) mmol/L Anion Gap 8.6 (5-15) MEQ/L BUN 15 (7-17) mg/dL Creatinine 0.58 (0.52-1.04) mg/dL Estimated GFR 106.1 ML/MIN Glucose 107 H (74-106) mg/dL Calcium 8.3 L (8.4-10.2) mg/dL Total Bilirubin 0.20 (0.2-1.3) mg/dL AST 22 (14-36) U/L ALT 11 (0-35) U/L Alkaline Phosphatase 83 (38-126) U/L Serum Total Protein 6.5 (6.3-8.2) g/dL Albumin 3.4 L (3.5-5.0) g/dL Radiology Exams: Radiology Procedures Category Date Time Status FLUOROSCOPY UP TO 1 HR Routine Exams 08/10/25 07:03 Completed FOOT (MINIMUM 3 VIEWS) Routine Exams 08/10/25 07:03 Completed MRI LOW EXT JOINT W/O CONTRAST [MRI] Routine Exams 08/11/25 08:00 Completed Medications: Medications Generic Name Dose Route Start Last Admin Trade Name Freq PRN Reason Stop Dose Admin Acetaminophen 325 mg 08/10/25 14:19 08/11/25 14:25 Acetaminophen 325 Mg Tablet PO 09/09/25 14:18 325 mg UD PRN Administration PAIN AND/OR FEVER Aspirin 325 mg 08/10/25 15:00 08/11/25 09:07 Aspirin 325 Mg Tablet.Ec PO 09/09/25 14:59 325 mg DAILY KARENA Administration Bupropion HCl 300 mg 08/10/25 15:00 08/11/25 09:50 Bupropion Hcl 150 Mg Tablet Xl PO 09/09/25 14:59 300 mg DAILY KARENA Administration Diltiazem HCl 180 mg 08/10/25 15:00 08/11/25 09:09 Diltiazem Hcl Cd 180 Mg Cap.Sr.24h PO 09/09/25 14:59 180 mg DAILY KARENA Administration Duloxetine HCl 30 mg 08/10/25 15:00 08/11/25 09:08 Duloxetine Hcl 30 Mg Cap PO 09/09/25 14:59 30 mg DAILY KARENA Administration Ergocalciferol 50,000 unit 08/11/25 10:00 Ergocalciferol (Vitamin D2) 50,000 Unit Capsule PO 09/10/25 09:59 UD KARENA Ferrous Sulfate 325 mg 08/10/25 15:00 08/11/25 09:07 Ferrous Sulfate 325 Mg Tablet PO 09/09/25 14:59 325 mg DAILY KARENA Administration Folic Acid 1 tab 08/10/25 15:00 08/11/25 09:09 Folic Acid/Vitamin B Comp W-C 1 Tab Tab PO 09/09/25 14:59 1 tab DAILY KARENA Administration Furosemide 40 mg 08/10/25 15:00 08/11/25 09:08 Furosemide 40 Mg Tablet PO 09/09/25 14:59 40 mg DAILY KARENA Administration Gabapentin 300 mg 08/10/25 22:00 08/10/25 21:01 Gabapentin 300 Mg Capsule PO 09/09/25 21:59 300 mg HS KARENA Administration Hydralazine HCl 10 mg 08/10/25 15:09 Hydralazine Hcl 20 Mg/Ml Vial IV 09/09/25 15:08 Q4H PRN PRN HYPERTENSION Levofloxacin 750 mg 08/10/25 15:00 08/11/25 09:09 Levofloxacin 250 Mg Tab PO 08/19/25 10:01 750 mg DAILY KARENA Administration Levothyroxine Sodium 75 mcg 08/10/25 15:00 08/11/25 09:09 Levothyroxine Sodium 75 Mcg Tablet PO 09/09/25 14:59 75 mcg DAILY KARENA Administration Meloxicam 15 mg 08/10/25 15:00 08/11/25 09:09 Meloxicam 7.5 Mg Tablet PO 09/09/25 14:59 15 mg DAILY KARENA Administration Oxycodone HCl 10 mg 08/10/25 14:18 08/10/25 21:01 Oxycodone Hcl 5 Mg Ir Tab PO 08/15/25 14:17 10 mg Q6H PRN PRN Administration POST OP PAIN Pantoprazole Sodium 40 mg 08/10/25 15:00 08/11/25 09:08 Protonix (Pantoprazole) 40 Mg Tablet PO 09/09/25 14:59 40 mg DAILY KARENA Administration Phenazopyridine HCl 200 mg 08/10/25 15:00 08/11/25 14:23 Phenazopyridine Hcl 200 Mg Tablet PO 08/12/25 14:59 200 mg TID KARENA Administration Potassium Chloride 20 meq 08/10/25 15:00 08/11/25 09:09 Potassium Chloride Tab 10 Meq Tab PO 09/09/25 14:59 20 meq DAILY KARENA Administration Prednisone 1.25 mg 08/11/25 10:00 08/11/25 09:08 Prednisone 5 Mg Tablet PO 09/10/25 09:59 1.25 mg QOD KARENA Administration Terazosin HCl 5 mg 08/11/25 22:00 Terazosin Hcl 1 Mg Cap PO 09/10/25 21:59 HS KARENA Discontinued Medications Generic Name Dose Route Start Last Admin Trade Name Garrett PRN Reason Stop Dose Admin Fentanyl Citrate Confirm 08/10/25 12:27 Fentanyl Citrate 100 Mcg/2 Ml* Vial Administered 08/10/25 12:28 Dose 100 mcg .ROUTE .STK-MED ONE Fentanyl Citrate Confirm 08/10/25 13:03 Fentanyl Citrate 100 Mcg/2 Ml* Vial Administered 08/10/25 13:04 Dose 100 mcg .ROUTE .STK-MED ONE Hydrocortisone Sodium Succinate 100 mg 08/10/25 07:08 Hydrocortisone Sod Succinate 100 Mg/Vial Vial IJ 08/10/25 07:09 .STK-MED ONE Hydromorphone HCl Confirm 08/10/25 13:03 Hydromorphone Hcl/Pf 0.5 Mg/0.5 Ml Syringe Administered 08/10/25 13:04 Dose 0.5 mg .ROUTE .STK-MED ONE Clindamycin HCl/Dextrose 900 mg in 50 mls @ 100 mls/hr 08/10/25 07:24 08/10/25 08:31 Clindamycin-D5w 900 Mg/50 Ml IV 08/10/25 07:53 100 mls/hr ONCALLTOOR ONE Administration Lactated Ringer's 1,000 mls @ 50 mls/hr 08/10/25 07:30 08/10/25 08:30 Lactated Ringers IV 09/09/25 07:29 50 mls/hr .Q20H KARENA Administration Clindamycin HCl/Dextrose Confirm 08/10/25 08:28 Clindamycin-D5w 900 Mg/50 Ml Administered 08/10/25 08:29 Dose 900 mg in 50 mls @ ud IV .STK-MED ONE Lactated Ringer's Confirm 08/10/25 08:28 Lactated Ringers Administered 08/10/25 08:29 Dose 1,000 mls @ ud IV .STK-MED ONE Ondansetron HCl Confirm 08/10/25 10:16 Ondansetron Hcl 4 Mg/2 Ml Vial Administered 08/10/25 10:17 Dose 4 mg .ROUTE .STK-MED ONE Propofol Confirm 08/10/25 10:16 Propofol 200 Mg/20 Ml Vial Administered 08/10/25 10:17 Dose 200 mg IV .STK-MED ONE Rocuronium [place] Confirm 08/10/25 10:16 Rocuronium [place] 50 Mg/5 Ml Vial Administered 08/10/25 10:17 Dose 50 mg IV .STK-MED ONE Sugammadex Sodium Confirm 08/10/25 12:26 Sugammadex Sodium 200 Mg/2 Ml Vial Administered 08/10/25 12:27 Dose 200 mg IV .STK-MED ONE Terazosin HCl 5 mg 08/10/25 15:00 08/10/25 15:07 Terazosin Hcl 1 Mg Cap PO 09/09/25 14:59 5 mg DAILY KARENA Administration Vancomycin HCl Confirm 08/10/25 09:43 Vancomycin Hcl Inj 1 Gm Vial Administered 08/10/25 09:44 Dose 1 gm IV .STK-MED ONE Vancomycin HCl Confirm 08/10/25 09:43 Vancomycin Hcl Inj 1 Gm Vial Administered 08/10/25 09:44 Dose 1 gm IV .STK-MED ONE Assessment/Plan (1) Charcot joint of foot Current Visit: No Status: Chronic Assessment & Plan: Patient examination evaluation. Patient is postop day #1 status post removal of external fixator repeat bone debridement with bone biopsies and cultures partial talectomy and application of antibiotic impregnated spacer Currently awaiting urine culture for better assessment of source of elevated white blood cell count Obtain bone biopsies and bone cultures will await result before proceeding with definitive fixation once again. Depending on results we will anticipate PICC line placement for IV antibiotics. Currently on oral levofloxacin Dressing to right lower extremity is intended to stay clean dry and intact at this time. Cultures were taken to the left midfoot at this time to understand if source of infection is left lower extremity Will follow with you Code(s): M14.679 - CHARCOT'S JOINT, UNSPECIFIED ANKLE AND FOOT (2) Charcot's joint, right ankle and foot Current Visit: No Status: Acute Code(s): M14.671 - CHARCOT'S JOINT, RIGHT ANKLE AND FOOT (3) History of removal of retained hardware Current Visit: No Status: Acute Code(s): Z98.890 - OTHER SPECIFIED POSTPROCEDURAL STATES (4) Hypoalbuminemia Current Visit: No Status: Acute Code(s): E88.09 - OTH DISORDERS OF PLASMA- PROTEIN METABOLISM, NEC (5) Leukocytosis Current Visit: No Status: Acute Code(s): D72.829 - ELEVATED WHITE BLOOD CELL COUNT, UNSPECIFIED (6) Ulcer of left foot Current Visit: No Status: Acute Code(s): L97.529 - NON-PRESSURE CHRONIC ULCER OTH PRT LEFT FOOT W UNSP SEVERITY (7) Obesity (BMI 30.0-34.9) Current Visit: No Status: Chronic Code(s): E66.811 - OBESITY, CLASS 1 (8) Peripheral neuropathy Current Visit: No Status: Chronic Code(s): G62.9 - POLYNEUROPATHY, UNSPECIFIED
[2025-08-11] MEDS: HYTRIN 1 MG PO SCH (21:55)
[2025-08-12 04:32] VITALS: RESP 16
[2025-08-12 05:00] LABS: Hematocrit 29.9 % (34.1-44.9); Hemoglobin 8.9 g/dL (11.2-15.7); Mean Corpuscular Hemoglobin 26.1 pg (25.6-32.2); Mean Corpuscular Hgb Concent. 29.8 g/dL (32.2-35.5); Platelet Count 342 x10^3/uL (182-369); Red Blood Count 3.41 x10^6/uL (3.93-5.22); White Blood Count 8.2 x10^3/uL (3.98-10.04)
[2025-08-12 05:34] LABS: Calcium 8.6 mg/dL (8.4-10.2); Carbon Dioxide 27 mmol/L (22-30); Creatinine 1 0.73 mg/dL (0.52-1.04); EST GLOMERULAR FILTRATION RATE 96.5 ML/MIN; Glucose 101 mg/dL (74-106); Potassium 4.0 mmol/L (3.5-5.1); SGOT/AST 20 U/L (14-36); SGPT/ALT 11 U/L (0-35); Total Protein 6.7 g/dL (6.3-8.2)
[2025-08-12 07:27] VITALS: BP 120/62; PULSE 57; TEMP 97.7; O2SAT 96
--- NOTE | 2025-08-12 10:16 | PCM.DS ---
Discharge Summary Date of Admission: 08/10/25 13:47 Date of Discharge: 08/12/25 Admitting Physician: JOSEPH ADLER MD Consults: Consults on Case 08/10/25 15:13 Consult Podiatry ROUTINE Primary Care Provider: LIT RANGEL MD Allergies Allergies cephalexin [From Keflex] Allergy (Verified 08/11/25 13:38) lisinopril Allergy (Verified 08/11/25 13:38) Hospital Summary - Hospital Course Hospital Course: The patient is a 55-year-old female with a history of peripheral neuropathy, hypertension, hypothyroidism, osteoarthritis, rheumatoid arthritis, GERD, anxiety, depression, heart murmur, degenerative disc disease, peripheral vascular disease, anemia, and chronic obesity. She was admitted on 08/10/25 following podiatric surgery for right Charcot foot hardware removal. Postoperatively, podiatry requested an MRI of the right ankle to evaluate for possible osteomyelitis. She also reported dysuria and urinary urgency on admission, for which AZO and Levaquin were initiated. During hospitalization, her pain was well controlled, and she remained hemodynamically stable without new complaints. WBC normalized, and hemoglobin remained stable at 8.8, which will continue to be monitored outpatient. Urine culture returned negative, and bone cultures are pending at the time of discharge. MRI of the right lower extremity showed ferromagnetic artifact from prior hardware, diffuse mid- to hindfoot bony erosions and edema possibly related to recent surgery, with inflammatory or infectious process not entirely excluded, and deformities consistent with prior Charcot arthropathy. On 08/12/25, podiatry approved discharge with continuation of oral Levaquin. The patient was counseled on follow-up with podiatry as scheduled. Her PHQ-9 was elevated, but she denied suicidal or homicidal ideation and agreed to follow up with her primary care provider regarding mood management. She was stable at discharge and reported no further concerns, ready to return home. - Vitals & Intake/Output Vital Signs: Vital Signs Temperature 97.7 F 08/12/25 07:25 Pulse Rate 57 L 08/12/25 07:25 Respiratory Rate 16 08/12/25 07:25 Blood Pressure 120/62 08/12/25 07:25 O2 Sat by Pulse Oximetry 96 08/12/25 07:25 Intake & Output: Intake & Output 08/09/25 08/10/25 08/11/25 09/25/25 11:59 11:59 11:59 11:59 Intake Total 720 2240 Balance 720 2240 Weight 101.5 kg 101.5 kg - Lab Result Diagrams: 08/12/25 04:40 08/12/25 04:40 Lab Results-Last 24 Hrs: Lab Results-Last 24 Hours 08/12/25 08/12/25 Range/Units 04:40 04:40 WBC 8.2 (3.98-10.04) x10^3/uL RBC 3.41 L (3.93-5.22) x10^6/uL Hgb 8.9 L (11.2-15.7) g/dL Hct 29.9 L (34.1-44.9) % MCV 87.7 (79.4-94.8) fL MCH 26.1 (25.6-32.2) pg MCHC 29.8 L (32.2-35.5) g/dL RDW 19.2 H (11.7-14.4) % Plt Count 342 (182-369) x10^3/uL MPV 8.6 L (9.4-12.3) fL Sodium 138 (135-145) mmol/L Potassium 4.0 (3.5-5.1) mmol/L Chloride 107 (98-107) mmol/L Carbon Dioxide 27 (22-30) mmol/L Anion Gap 9.1 (5-15) MEQ/L BUN 14 (7-17) mg/dL Creatinine 0.73 (0.52-1.04) mg/dL Estimated GFR 96.5 ML/MIN Glucose 101 (74-106) mg/dL Calcium 8.6 (8.4-10.2) mg/dL Total Bilirubin < 0.10 L (0.2-1.3) mg/dL AST 20 (14-36) U/L ALT 11 (0-35) U/L Alkaline Phosphatase 81 (38-126) U/L Serum Total Protein 6.7 (6.3-8.2) g/dL Albumin 3.4 L (3.5-5.0) g/dL Micro Results-Entire Visit: Microbiology 08/11/25 12:29 Wound Culture - Preliminary Foot - Left Bottom ORGANISMS ISOLATED ARE CONSISTENT WITH NORMAL SKIN RAMBO SCANT GROWTH, NO PREDOMINANT ORGANISM 08/11/25 08:30 Urine Culture - Final Clean Catch Midstream NO GROWTH 08/10/25 13:47 Anaerobic Culture Result 1 - Final Talus - Right Not Reportable 08/10/25 13:47 Anaerobic Culture Result 1 - Final Tibia - Right Not Reportable Anaerobic Culture Result 2 - Final Not Reportable Anaerobic Culture Result 3 - Final Not Reportable Anaerobic Culture Result 4 - Final Not Reportable Anaerobic Bacterial Sensitivity - Final Not Reportable Aerobic Culture Result 1 - Final Not Reportable Aerobic Culture Result 2 - Final Not Reportable Aerobic Culture Result 3 - Final Not Reportable Aerobic Culture Result 4 - Final Not Reportable Aerobic Bacterial Sensitivity - Final Not Reportable 08/10/25 07:46 Urine Culture - Final Clean Catch Midstream <10K NORMAL SKIN RAMBO PROBABLE SKIN CONTAMINANT - Radiology Exams Ordered Rad Exams-Entire Visit: Radiology Procedures Category Date Time Status MRI LOW EXT JOINT W/O CONTRAST [MRI] Routine Exams 08/11/25 08:00 Completed Discharge Exam General Appearance: no apparent distress, alert Neurologic Exam: alert, oriented x 3, cooperative, normal mood/affect, nml cerebellar function, sensation nml, No motor deficits Eye Exam: PERRL, EOMI, eyes nml inspection Ears, Nose, Throat Exam: normal ENT inspection, pharynx normal, moist mucous membranes Neck Exam: normal inspection, non-tender, supple, full range of motion Respiratory Exam: normal breath sounds, lungs clear, No respiratory distress Cardiovascular Exam: regular rate/rhythm, normal heart sounds Gastrointestinal/Abdomen Exam: soft, No tenderness, No mass Pelvic Exam: deferred Rectal Exam: deferred Back Exam: normal inspection, normal range of motion, No CVA tenderness, No vertebral tenderness Extremity Exam: normal inspection, normal range of motion, tenderness (BLLE wrapped) Skin Exam: normal color, warm, dry Wound Assessment: Skin/Wound Assessment Wound/Incision Assessment Start: 08/11/25 12:32 Text: Status: Active Freq: Protocol: Document 08/11/25 12:37 RM (Rec: 08/11/25 12:38 RM [id number]) Wound/Incision Assessment Bottom of left foot Wound Assessment Shift Assessment Wound Stage Non Pressure Wound Dressing Status Changed Drainage Amount Minimal Drainage Description Serous Drainage Odor None/Absent General Appearance Draining,Unapproximated Length (cm) (cm) 0.7 Width (cm) (cm) 0.4 Topical Solution/Irrigant Saline Irrigant Primary Dressing Gauze Pads Secondary Dressing Gauze Roll/Wrap Comment Depth measured at 0.2cm but may not be true depth. This nurse did not want to cause any further injury to area where the tissue may be healing. Wound Photo Photo Taken Yes Date: 08/11/25 Time: 12:25 Final Diagnosis/Problem List - Final Discharge Diagnosis/Problem (1) S/P hardware removal Current Visit: Yes Status: Acute Code(s): Z98.890 - OTHER SPECIFIED POSTPROCEDURAL STATES (2) UTI (urinary tract infection) Current Visit: Yes Status: Acute Code(s): N39.0 - URINARY TRACT INFECTION, SITE NOT SPECIFIED (3) Charcot joint of foot Current Visit: No Status: Chronic Code(s): M14.679 - CHARCOT'S JOINT, UNSPECIFIED ANKLE AND FOOT (4) Leukocytosis Current Visit: No Status: Acute Code(s): D72.829 - ELEVATED WHITE BLOOD CELL COUNT, UNSPECIFIED (5) Depression with anxiety Current Visit: No Status: Chronic Code(s): F41.8 - OTHER SPECIFIED ANXIETY DISORDERS (6) HTN (hypertension) Current Visit: No Status: Chronic Code(s): I10 - ESSENTIAL (PRIMARY) HYPERTENSION (7) Obesity (BMI 30.0-34.9) Current Visit: No Status: Chronic Code(s): E66.811 - OBESITY, CLASS 1 (8) Peripheral neuropathy Current Visit: No Status: Chronic Assessment & Plan: (1) S/P hardware removal Current Visit: Yes Status: Acute Assessment & Plan: - In OR by podiatry today - Podiatry note reviewed- consider PICC if needed - MRI of RLE pending - Narcotic pain med PO PRN - CBC, CMP reviewed - Cultures pending from OR procedure - Levaquin PO per podiatry 08/11 - POD #2 from hardware removal - MRI pending - pain well controlled - CBC, CMP reviewed - Bone Cultures pending x2 08/12 - MRI RLE: 1. Ferromagnetic artifact distal tibial orthopedic rodolfo, talotibial prosthesis, and medial ankle. 2. Diffuse mid to hindfoot bony erosions/deformities with diffuse soft tissue swelling/edema possibly related to surgery 1 day earlier. Cannot completely exclude inflammatory/infectious process. 3. Tarsometatarsal articulation deformities presumed related to previous reported Charcot arthropathy. - D/C with Levaquin PO - OK to d/c per podiatry - CBC, CMP reviewed Code(s): Z98.890 - OTHER SPECIFIED POSTPROCEDURAL STATES (2) UTI (urinary tract infection) Current Visit: Yes Status: Acute Assessment & Plan: - UA reviewed - + Dysuria and urgency - UC - AZO - Levaquin 08/11 - UC pending - Sxs improved - Cont Levaquin 08/12 - UC negative Code(s): N39.0 - URINARY TRACT INFECTION, SITE NOT SPECIFIED (3) Charcot joint of foot Current Visit: No Status: Chronic Assessment & Plan: - Chronic - Podiatry following Code(s): M14.679 - CHARCOT'S JOINT, UNSPECIFIED ANKLE AND FOOT (4) Leukocytosis Current Visit: No Status: Acute Assessment & Plan: - WBC 13.2 - UTI vs RLE infection? 08/11 - Resolved Code(s): D72.829 - ELEVATED WHITE BLOOD CELL COUNT, UNSPECIFIED (5) Depression with anxiety Current Visit: No Status: Chronic Assessment & Plan: - Continue home meds - Discussed elevated PHQ 9 results and pt to f/u OP with PCP Code(s): F41.8 - OTHER SPECIFIED ANXIETY DISORDERS (6) HTN (hypertension) Current Visit: No Status: Chronic Assessment & Plan: - Hydralizne PRN IV Code(s): I10 - ESSENTIAL (PRIMARY) HYPERTENSION (7) Obesity (BMI 30.0-34.9) Current Visit: No Status: Chronic Code(s): E66.811 - OBESITY, CLASS 1 - Advised diet and exercise control (8) Peripheral neuropathy Current Visit: No Status: Chronic Assessment & Plan: - Continue Cymbalta and gabapentin Code(s): G62.9 - POLYNEUROPATHY, UNSPECIFIED - Discharge Discharge Date: 08/12/25 Disposition: Home, Self-Care Condition: Stable Prescriptions: New Levofloxacin [Levofloxacin 250MG Tablet] 750 mg PO DAILY 10 Days #10 tablet Continue predniSONE [Prednisone] 1 tab PO .EVERY OTHER DAY Terazosin HCl 1 tab PO DAILY Potassium Chloride 1 tab PO DAILY Levomefolate Calcium [l-Methylfolate] 1 tab PO DAILY Meloxicam 15 mg [Meloxicam 15 MG] 1 tab PO DAILY Levothyroxine Sodium 75 Mcg [Synthroid 75 Mcg] 1 tab PO DAILY Gabapentin [Neurontin ] 1 cap PO HS Furosemide 40 mg [Lasix 40 MG] 1 tab PO DAILY Esomeprazole Magnesium 40 mg PO DAILY Duloxetine HCl 1 tab PO DAILY Diltiazem HCl Cd [Cardizem CD ] 180 mg PO DAILY buPROPion HCL [Bupropion Xl] 1 tab PO DAILY Acetaminophen [Tylenol] 1 tab PO UD PRN PRN Reason: Pain And/Or Fever Aspirin EC 325 mg [Ecotrin 325 MG] 325 mg PO DAILY tablet Ferrous Sulfate 325 mg [Feosol 325 mg] 325 mg PO DAILY 30 Days #30 tablet Cholecalciferol (Vitamin D3) [Vitamin D3] 1 tab PO DAILY Additional Instructions: MAINTAIN NON WEIGHTBEARING STATUS ON RIGHT FOOT LEAVE DRESSING CLEAN DRY AND INTACT UNTIL YOU FOLLOW UP WITH [facility] CONTINUE ASPIRIN FOR DVT PROPHYLAXIS SEE PRESCRIPTION FOR LEVAQUIN Follow up with: CECE GOMEZ DPM [ACTIVE STAFF, PODIATRY] - 08/17/25 2:00 pm LIT RANGEL MD [Primary Care Provider, INTERNAL MEDICINE] - 08/26/25 7:30 am
== END 2025-08-12 12:07 | disposition home or self-care (01) ==
LOC: SDC 07:07 → MED SURG 13:47 → SDC 13:48
PROVIDERS: ADMIT Internal Medicine; ATTEND Internal Medicine
DX: M14.671 Charcot's joint, right ankle and foot (principal); E88.09 Other disorders of plasma-protein metabolism, not elsewhere classified; D72.829 Elevated white blood cell count, unspecified; L97.529 Non-pressure chronic ulcer of other part of left foot with unspecified severity; E66.811 Obesity, class 1; G62.9 Polyneuropathy, unspecified; I10 Essential (primary) hypertension; E03.9 Hypothyroidism, unspecified; N39.0 Urinary tract infection, site not specified; F41.8 Other specified anxiety disorders; L97.511 Non-pressure chronic ulcer of other part of right foot limited to breakdown of skin; E55.9 Vitamin D deficiency, unspecified; R79.9 Abnormal finding of blood chemistry, unspecified; M86.9 Osteomyelitis, unspecified; R26.2 Difficulty in walking, not elsewhere classified; Z79.899 Other long term (current) drug therapy

== ENCOUNTER 2025-08-17 08:27 | Day surgery (SDC) | payer MEDICARE ==
[2025-08-17] MEDS ORDERED: NEURONTIN ONE (08:30)
[2025-08-17] MEDS ORDERED: Lactated Ringers 1,000 ML IV ONE ×2 (08:30→08:35)
[2025-08-17] MEDS ORDERED: celeBREX 100 MG ONE (08:30)
[2025-08-17] MEDS ORDERED: TYLENOL EXTRA STRENGTH 500 MG ONE (08:30)
[2025-08-17] MEDS ORDERED: Decadron 4 MG ONE (08:30)
[2025-08-17] MEDS: Decadron 4 MG PO ONE (08:36)
[2025-08-17] MEDS: TRANEXAMIC 1,000 MG/100ML-NACL 1,000 MG/100 ML PIGGYBACK IV ONE (08:36)
[2025-08-17] MEDS: NEURONTIN PO ONE (08:36)
[2025-08-17] MEDS: celeBREX 100 MG PO ONE (08:37)
[2025-08-17] MEDS: TYLENOL EXTRA STRENGTH 500 MG PO ONE (08:38)
[2025-08-17] MEDS: Lactated Ringers 1,000 ML IV SCH (08:39)
[2025-08-17 08:54] VITALS: RESP 16
[2025-08-17 09:08] LABS: Hematocrit 32.5 % (34.1-44.9); Hemoglobin 10.0 g/dL (11.2-15.7); Mean Corpuscular Hemoglobin 26.3 pg (25.6-32.2); Mean Corpuscular Hgb Concent. 30.8 g/dL (32.2-35.5); Platelet Count 447 x10^3/uL (182-369); Red Blood Count 3.80 x10^6/uL (3.93-5.22); White Blood Count 10.8 x10^3/uL (3.98-10.04)
[2025-08-17 09:27] LABS: Calcium 9.2 mg/dL (8.4-10.2); Carbon Dioxide 22.0 mmol/L (22-30); Creatinine 1 0.75 mg/dL (0.52-1.04); EST GLOMERULAR FILTRATION RATE 93.4 ML/MIN; Glucose 99.0 mg/dL (74-106); Potassium 3.6 mmol/L (3.5-5.1); SGOT/AST 32.0 U/L (14-36); SGPT/ALT 14.0 U/L (0-35); Total Protein 8.5 g/dL (6.3-8.2)
[2025-08-17] MEDS: CLINDAMYCIN-D5W 900 MG/50 ML*** 900 MG/50 ML BAG IV ONE (09:59)
[2025-08-17] MEDS ORDERED: SUBLIMAZE 100 MCG/2 ML ONE (10:24)
[2025-08-17] MEDS ORDERED: Versed 2 MG/2 ML Injection ONE (10:24)
[2025-08-17] MEDS ORDERED: Xylocaine-Mpf 2% 5 Ml Vial ONE (10:24)
[2025-08-17] MEDS ORDERED: Marcaine Mpf 0.5% Vial 30 Ml ONE (10:26)
[2025-08-17] MEDS ORDERED: propofoL IV ONE (11:28)
[2025-08-17] MEDS ORDERED: ROCURONIUM BROMIDE IV ONE (12:20)
[2025-08-17] MEDS ORDERED: BRIDION 200MG/2ML IV ONE (14:19)
--- NOTE | 2025-08-17 14:40 | XRAY ---
Indication: Right ankle tibiotalocalcaneal arthrodesis, removal cement spacer, midfoot osteotomy with multiple transverse tarsometatarsal joint arthrodesis, and Achilles tendotomy. Intraoperative fluoroscopy provided for 5 minutes and 35 seconds. 46 digital spot images submitted for interpretation ultimately demonstrates removal talotibial spacer, partial excision distal fibula, talotibial arthrodesis with lateral fixation plate/multiple screws, insertion 1st/2nd tarsometatarsal fusion screws, and insertion tarsal calcaneal fusion screw. Correlate with intraoperative findings/report.
[2025-08-17 15:51] VITALS: TEMP 97.6
[2025-08-17 16:08] VITALS: BP 157/86; PULSE 66; O2SAT 100
--- NOTE | 2025-08-17 16:32 | XRAY ---
Five minutes and 35 seconds of fluoroscopy was used in surgery for a right ankle tibiotalocalcaneal arthrodesis, removal cement spacer, midfoot osteotomy with multiple transverse tarsometatarsal joint arthrodesis, and Achilles tendotomy.
--- NOTE | 2025-08-19 11:56 | OP ---
SURGERY DATE/TIME: 08/17/2025 4197 - [id number] PREOPERATIVE DIAGNOSES: 1) Charcot osteoarthropathy of right ankle. 2) Charcot osteoarthropathy of midfoot, right foot. 3) Osteomyelitis. 4) Instability with gait. 5) Dehiscence of surgical wounds. 6) Ankle joint arthritis. 7) Subtalar joint osteoarthritis. POSTOPERATIVE DIAGNOSES: 1) Charcot osteoarthropathy of right ankle. 2) Charcot osteoarthropathy of midfoot, right foot. 3) Osteomyelitis. 4) Instability with gait. 5) Dehiscence of surgical wounds. 6) Ankle joint arthritis. 7) Subtalar joint osteoarthritis. PROCEDURES: 1) Removal of antibiotic spacer, right ankle. 2) Bone marrow aspirate harvest, right calcaneus. 3) Allograft femoral head placement. 4) Tibiotalar calcaneal arthrodesis. 5) Midfoot triplanar osteotomy. 6) Multiple transverse tarsometatarsal joint arthrodesis. 7) Delayed primary closure x3. 8) Achilles tenotomy. 9) Fibular osteotomy. SURGEON: Liu Orozco DPM BELL TIER: ELMA Sandoval ANESTHESIA: General plus a regional block. See Anesthesia report for details. HEMOSTASIS: A thigh tourniquet set to 320 mmHg for a total of 120 total tourniquet minutes. ESTIMATED BLOOD LOSS: Approximately 150 mL. MATERIALS: A midline lateral TTC plate with 6.5 x105 headless compression screw; three Vilex Beams, one 6.5 x 115 mm, one 5.0 x115 mm, and a 5.0 x 70 mm; 1 bulk femoral head allograft; 110 mL of Triad and 30 mL of cancellous chips. INDICATIONS: The patient is a very pleasant 55-year-old female who is finally at the final stage of her 3-stage procedure. Initially patient was suspected to have hardware failure, as well as infection within the tibia and the calcaneus. Bone biopsies were obtained, as well as bone cultures, which have subsequently been eradicated to any signs of infection. At this time, we repeated the bone biopsies and bone debridement last week in order to ensure due to an elevated white blood cell count and inflammation markers. At this time, she has stabilized fairly significantly. She is being managed with oral antibiotics and is ready for the definitive stay . No guarantees were provided as to the outcome of surgical intervention. Plenty of time was allowed for the patient to ask questions, which were answered to her apparent satisfaction. It is at this time we decided to proceed. DESCRIPTION OF PROCEDURE AND FINDINGS: Patient was into the PACU, provided a popliteal and saphenous block. Exparel to the right lower extremity. Following this, patient was brought into the operating room, placed on the operating room table in the supine position. General anesthesia was administered until the patient was adequately sedated. The right lower extremity was then prepped and draped in the typical sterile fashion from the surgical field. From that standpoint, attention was directed to the lateral aspect of the leg where very quickly it was recognized that the antibiotic spacer needed to come out. Attention was directed to the right lower extremity where a linear incision was made where this was down to the level of bone utilizing a 10 blade. The antibiotic spacer was then removed from this site. The Achilles tenotomy was performed percutaneously at the posterior aspect of the Achilles insertion at the calcaneus, allowing us to reduce the calcaneus into a more dorsiflexed position. Once this was performed, the joint site was then prepared utilizing a combination of rongeur, curettes, honey badgers and curved osteotomes and mallets to increase surface area and vascular ingrowth. Once this was performed, BMA was harvested from the right calcaneus. This was spun down and then, bulk femoral head allograft was cut to size, soaked in the bone marrow aspirate, and placed within the deficit. In the area surrounding, a 10 mL of Triad, half of which was utilized to place on that femoral head allograft. Once in place and the position was deemed to be adequate at the rear foot. Two K-wires were placed in the calcaneus spanning the allograft at the level of the ankle and then, anterior tibia. From that standpoint, once the position was assessed to be adequate, the lateral TTC plate was introduced and the distal screws were placed, gaining excellent compression and bite into the calcaneus. Once this was performed, the TTC screws utilizing the 6.5 x 105 headless option was then introduced into the calcaneus and spanning the tibia. The lateral locking plate was then locked down sequentially and gaining excellent compression through the tibiotalar and the subtalar joints in these respects. The fibula was resected prior to this. Before placing the plate, a fibular osteotomy was performed, removing approximately 5 cm of the fibula to gain excellent compression of the plate against the anatomical surface of the lateral tibia. Once this was achieved, the position was assessed. Calcaneal pitch was significantly improved. Decision was made to proceed for the midfoot osteotomy. At this time, a triplanar wedge was performed at the dorsal aspect of the midfoot. This was centered over the talonavicular joint. Once the osteotomy was performed through the midfoot, the foot was flexed into an orientation where the plantar aspect was making contact; however, there was gapping at the dorsal aspect. Significant amounts of corticocancellous chips, as well as Triad were packed into the deficit and the position was pinned in an adequate position, restoring the plantar longitudinal arch. Once this was performed, a 6.5 x 115 fully-threaded screw was introduced into the first ray, beaming across the midtarsal joint and then a 5.0 x 115 was introduced into the second ray, stabilizing this. The lateral column was stabilized utilizing a 5.0 x 70 fully threaded variable . Once copious amounts of sterile saline were utilized to flush the surgical site. The 3 incision sites from the incision and drainage were debrided and still open. Copious amounts of sterile saline were utilized to flush the surgical sites at this time. A 4-0 Monocryl was then utilized to coapt the skin edges subcutaneously and then 3-0 nylon was utilized in a horizontal mattress and a simple interrupted-type fashion to the plantar aspect of the foot, the medial aspect of the leg, as well as the lateral aspect of the with 3 separate . The leg was cleansed utilizing sterile saline and dried. Iodine, Adaptic, 4 x 4, Kerlix, ABD and a well-padded posterior splint with sugar-tong was applied to the patient's right lower extremity with the foot orthogonal relative to the longitudinal axis of the leg. Patient was then reversed from anesthesia and returned to the postanesthesia care unit with vital signs stable and vascular status intact. Patient handled the anesthesia, as well as the procedure, without significant complication. Postoperative orders as indicated in the patient's discharge chart.
== END 2025-08-17 16:17 | disposition home or self-care (01) ==
LOC: SDC 08:27
PROVIDERS: ATTEND Podiatrist Foot & Ankle Surgery
DX: M14.671 Charcot's joint, right ankle and foot (principal); M86.9 Osteomyelitis, unspecified; R26.89 Other abnormalities of gait and mobility; T81.31XA Disruption of external operation (surgical) wound, not elsewhere classified, initial encounter; M19.071 Primary osteoarthritis, right ankle and foot
CPT/HCPCS: 13160; 27641; 27685; 27870; 28300; 28730; 36415; 38220; 73630; 76000; 80053; 85027; C1713; C1762